=== PATIENT | female | born 1960 | race Caucasian/White ===

== ENCOUNTER 2016-06-17 19:38 | Emergency (ER) | payer OTHER ==
[~2016-06-17] VITALS: Ht 180.3 cm; Wt 113.3 kg
[~2016-06-17 19:38] MED LIST: ATORVASTATIN CA40 MG PO; B COMPLEX #11 EACH PO; B-100 COMPLEX1 EACH PO; BUDEPRION SR150 MG PO; BUPROPION HCL150 M2 PO; BUPROPION HCL200 MG PO; CELEBREX200 MG PO; CIPRO500 M1 PO; COLACE100 MG PO; CYMBALTA60 MG PO; DALMANE15 MG PO; DESOWEN60 GM TP; DEXILANT30 MG PO; DICYCLOMINE HCL10 MG PO; DICYCLOMINE HCL20 MG PO; FLEXERIL10 MG PO; FLONASE16 G1 BOTH NARES; FLONASE16 G1 NS; FLURAZEPAM HCL15 MG PO; GLUMETZA1000 M1 PO; HYDROCODON-ACE1 EAC7 PO; LEVOTHROID,S0.175 M1 PO; LEVOTHROID137 MCG PO; LISINOPRIL40 MG; LISINOPRIL40 MG PO; LOSARTAN POTAS100 MG PO; LOSARTAN-HCTZ1 EAC1 PO; LYRICA200 MG PO; MELATONIN10 M2 PO; MIRTAZAPINE30 MG; MIRTAZAPINE30 MG PO; NORVASC5 MG PO; OMEPRAZOLE40 M1 PO; OXCARBAZEPINE600 MG PO; PERCOCET 5/31 TABLET PO; PROTONIX40 MG PO; PYRIDIUM200 MG PO; SOY ISOFLAVONES40 MG PO; TIROSINT100 MCG PO; TRAZODONE HCL150 MG PO; TRILEPTAL600 MG PO; TYLENOL WITH C1 EACH PO; ULTRAM ER200 MG PO; ULTRAM ER300 MG PO; VITAMIN D34000 UNIT PO; ZESTRIL,PRINIVI20 MG PO; ZESTRIL20 MG PO; ZITHROMAX250 MG PO
[2016-06-17 20:31] LABS: HEMATOCRIT 39.4 % (36.0-46.0); MCH 30.6 PG (29.0-34.0); MCHC 36.8 G/DL (30.0-36.0); MCV 83.1 FL (83-99); PLATELET COUNT 204 K/uL (156-360); RBC DIS.WIDTH-CV 12.2 % (11.8-14.6); RBC DIS.WIDTH-SD 36.7 % (39-53); RED BLOOD COUNT 4.74 M/uL (3.80-5.20); WHITE BLOOD COUNT 5.2 K/uL (4.1-10.2)
[2016-06-17 20:45] LABS: CHLORIDE 95 mEq/L (99-109); POTASSIUM 3.6 mEq/L (3.7-5.4); SODIUM 130 mEq/L (136-147)
[2016-06-17 20:46] LABS: GLUCOSE 260 mg/dL (70-99)
[2016-06-17 20:48] LABS: ANION GAP 16 MEQ/L (2-14)
[2016-06-17 20:50] LABS: GFR ESTIMATE (CALCULATED) > 59 mL/min/
[2016-06-17 20:51] LABS: UREA NITROGEN (BUN) 10 mg/dL (9-23)
[2016-06-18] MEDS ORDERED: ZOFRAN ODT4 MG PO (00:12)
[2016-06-18] MEDS ORDERED: ZITHROMAX Z-PA250 MG PO (00:12)
[2016-06-18] MEDS ORDERED: VENTOLIN HFA18 GM IH (00:12)
[2016-06-18 00:17] VITALS: BP 159/75
== END 2016-06-18 00:28 | disposition home or self-care (01) ==
LOC: RME 19:38 → EME 19:38 → RME 06-18 00:28
DX: R11.2 Nausea with vomiting, unspecified (principal); J40 Bronchitis, not specified as acute or chronic; J02.9 Acute pharyngitis, unspecified; E11.9 Type 2 diabetes mellitus without complications; E78.5 Hyperlipidemia, unspecified; I10 Essential (primary) hypertension; G89.29 Other chronic pain; E03.9 Hypothyroidism, unspecified
CPT/HCPCS: 71020; 80048; 85027; 99281; 99285; J2405; S0028

== ENCOUNTER 2017-08-25 15:47 | Emergency (ER) | payer OTHER ==
[~2017-08-25] VITALS: Ht 180.3 cm; Wt 110.9 kg
[~2017-08-25 15:47] MED LIST changes: +VENTOLIN HFA18 GM IH; +ZITHROMAX Z-PA250 MG PO; +ZOFRAN ODT4 MG PO
[2017-08-25 16:27] LABS: BASOPHIL (%) 0.3 % (0-1); EOSINOPHIL (%) 0.6 % (0-5); HEMATOCRIT 36.1 % (36.0-46.0); IMMATURE GRANULOCYTE (%) 0.3 % (0.0-0.7); LYMPHOCYTE (%) 27.4 % (15-42); LYMPHOCYTE COUNT 1.7 K/uL (1.0-2.8); MCH 30.9 PG (29.0-34.0); MCV 85.7 FL (83-99); MONOCYTE (%) 5.4 % (3-12); MONOCYTE COUNT 0.3 K/uL (0-0.8); NEUTROPHIL COUNT 4.1 K/uL (1.8-6.4); PLATELET COUNT 242 K/uL (156-360); RBC DIS.WIDTH-CV 11.9 % (11.8-14.6); RBC DIS.WIDTH-SD 37.1 % (39-53); RED BLOOD COUNT 4.21 M/uL (3.80-5.20); WHITE BLOOD COUNT 6.2 K/uL (4.1-10.2)
[2017-08-25 16:38] LABS: CHLORIDE 91 mEq/L (99-109); MAGNESIUM 1.7 mg/dL (1.3-2.7); POTASSIUM 3.9 mEq/L (3.7-5.4); SODIUM 128 mEq/L (136-147)
[2017-08-25 16:39] LABS: GLUCOSE 150 mg/dL (70-99)
[2017-08-25 16:43] LABS: CREATININE 0.7 mg/dL (0.6-1.3); GFR ESTIMATE (CALCULATED) > 59 mL/min/
[2017-08-25 16:44] LABS: UREA NITROGEN (BUN) 10 mg/dL (9-23)
[2017-08-25 16:58] LABS: SERUM ETHYL ALCOHOL < 10 mg/dL
[2017-08-25 18:53] LABS: APPEARANCE CLEAR ((CLEAR)); BILIRUBIN NEGATIVE; BLOOD NEGATIVE; COLOR YELLOW ((YELLOW)); GLUCOSE (STRIP) NEGATIVE; KETONES NEGATIVE; LEUKOCYTES NEGATIVE; NITRITE NEGATIVE; PROTEIN (STRIP) 30; SPECIFIC GRAVITY 1.026 (1.000-1.030); UCUL ADDED? NO; UROBILINOGEN 0.2 MG/DL (0.2-1.0)
[2017-08-25 19:29] VITALS: BP 122/86
== END 2017-08-25 19:43 | disposition home or self-care (01) ==
LOC: EME 15:47
PROVIDERS: Emergency Medicine
DX: E87.1 Hypo-osmolality and hyponatremia (principal); F41.9 Anxiety disorder, unspecified; R42 Dizziness and giddiness; T38.1X6A Underdosing of thyroid hormones and substitutes, initial encounter; Z91.14 Patient's other noncompliance with medication regimen; E03.9 Hypothyroidism, unspecified; E78.5 Hyperlipidemia, unspecified; I10 Essential (primary) hypertension; K21.9 Gastro-esophageal reflux disease without esophagitis; K58.9 Irritable bowel syndrome, unspecified
CPT/HCPCS: 80048; 81003; 83735; 85025; 93005; 99281; 99284; G0480